=== PATIENT | female | born 1960 | race Caucasian/White ===

== ENCOUNTER 2021-02-16 10:00 | Observation (INO) ==
[2021-02-16] MEDS ORDERED: Melatonin 3 MG TABLET PO PRN (13:19)
[2021-02-16] MEDS ORDERED: Naloxone 0.4 MG/ML INJ IVP PRN (13:19)
[2021-02-16 14:09] LABS: Basophils % 0.5 %; Eosinophils # 0.1 K/mcL (0.0-0.6); Eosinophils % 1.6 %; Hematocrit 36.8 % (35.3-44.9); Hemoglobin 11.5 g/dL (11.5-15.4); Immature Granulocytes % 0.3 % (0-4); Lymphocytes # 1.7 K/mcL (0.6-4.6); Lymphocytes % 22.5 %; Mean Corpuscular HGB Conc 31.3 g/dL (31.6-35.5); Mean Corpuscular Volume 89.8 fL (83.0-100.0); Mean Platelet Volume 9.8 fL (9.4-12.4); Monocytes # 0.4 K/mcL (0.0-1.3); Neutrophils # 5.3 K/mcL (1.6-8.9); Platelet Count 263 K/mcL (140-400); Red Cell Distribution Width 14.4 % (11.5-14.5); Segmented Neutrophils % 70.1 %; White Blood Count 7.5 K/mcL (4.3-11.1)
[2021-02-16 14:18] LABS: INR 2.3; Prothrombin Time 26.4 Seconds (9.4-12.1)
[2021-02-16 14:38] LABS: Calcium 9.8 mg/dL (8.6-10.3); Magnesium 1.6 mg/dL (1.6-2.6); Potassium 3.8 mEq/L (3.5-5.1)
[2021-02-16] MEDS: DilTIAZem CD (24hr) 240 MG CAP.ER.24H PO SCH (17:09)
[2021-02-17 05:28] LABS: INR 2.2; Prothrombin Time 25.2 Seconds (9.4-12.1)
[2021-02-17] MEDS: DilTIAZem CD (24hr) 240 MG CAP.ER.24H PO SCH (08:28)
[2021-02-17] MEDS: Warfarin perPT PO SCH (10:49)
[2021-02-17] MEDS: Patient Taking Own Medication 1 EACH PO SCH ×2 (10:50→10:51)
[2021-02-17] MEDS: Cholecalciferol (D-3) 1,000 UNIT (25MCG) TABLET PO SCH (10:57)
[2021-02-17] MEDS: lisinopriL 10 MG TABLET PO SCH (10:57)
[2021-02-17] MEDS: Magnesium Oxide 400 MG TABLET PO SCH ×2 (10:57→20:46)
[2021-02-17] MEDS: Multivit/Ca/Min/Fe/FA 1 TAB TABLET PO SCH (10:57)
[2021-02-17] MEDS ORDERED: *HR* Warfarin 5 MG TABLET PO ONE (13:05)
[2021-02-18 06:18] LABS: INR 1.9; Prothrombin Time 21.2 Seconds (9.4-12.1)
[2021-02-18 06:37] LABS: Calcium 10.4 mg/dL (8.6-10.3); Potassium 3.8 mEq/L (3.5-5.1)
[2021-02-18] MEDS: Cholecalciferol (D-3) 1,000 UNIT (25MCG) TABLET PO SCH (08:21)
[2021-02-18] MEDS: Multivit/Ca/Min/Fe/FA 1 TAB TABLET PO SCH (08:21)
[2021-02-18] MEDS: lisinopriL 10 MG TABLET PO SCH (08:21)
[2021-02-18] MEDS: Magnesium Oxide 400 MG TABLET PO SCH ×2 (08:21→21:12)
[2021-02-18] MEDS: DilTIAZem CD (24hr) 240 MG CAP.ER.24H PO SCH (08:21)
[2021-02-18] MEDS ORDERED: *HR* Heparin 5,000 UNIT/ML VIAL IVP ONE (08:44)
[2021-02-18] MEDS ORDERED: *HR* Heparin 5,000 UNIT/ML VIAL IVP PRN ×2 (08:44)
[2021-02-18] MEDS ORDERED: *HR* Warfarin 3 MG TABLET PO ONE (09:00)
[2021-02-18] MEDS: Heparin 25,000UNIT/250ML 1/2NS 25,000 UNIT/250 ML IV.SOLN IVC SCH (10:14)
[2021-02-18] MEDS: Patient Taking Own Medication 1 EACH PO SCH ×2 (10:25)
[2021-02-18] MEDS: Warfarin perPT PO SCH (10:25)
[2021-02-18 12:05] LABS: Hematocrit 39.8 % (35.3-44.9); Hemoglobin 12.5 g/dL (11.5-15.4); Mean Corpuscular HGB Conc 31.4 g/dL (31.6-35.5); Mean Corpuscular Hemoglobin 27.9 pg (28.0-33.3); Mean Corpuscular Volume 88.8 fL (83.0-100.0); Platelet Count 321 K/mcL (140-400); Red Blood Count 4.48 M/mcL (3.82-4.97); Red Cell Distribution Width 14.1 % (11.5-14.5); White Blood Count 8.5 K/mcL (4.3-11.1)
[2021-02-18 12:14] LABS: Heparin anti-factor XA UFH 1.03 IU/mL (0.30-0.70); INR 4.4; Prothrombin Time 48.4 Seconds (9.4-12.1)
[2021-02-18 14:04] LABS: Prothrombin Time 24.4 Seconds (9.4-12.1)
[2021-02-18 14:05] LABS: INR 2.2
[2021-02-18 14:09] LABS: Heparin anti-factor XA UFH 1.55 IU/mL (0.30-0.70)
[2021-02-19 05:21] LABS: Prothrombin Time 22.2 Seconds (9.4-12.1)
[2021-02-19] MEDS: lisinopriL 10 MG TABLET PO SCH (08:22)
[2021-02-19] MEDS: Heparin 25,000UNIT/250ML 1/2NS 25,000 UNIT/250 ML IV.SOLN IVC SCH ×2 (08:22→15:37)
[2021-02-19] MEDS: Magnesium Oxide 400 MG TABLET PO SCH (08:22)
[2021-02-19] MEDS: Cholecalciferol (D-3) 1,000 UNIT (25MCG) TABLET PO SCH (08:22)
[2021-02-19] MEDS: DilTIAZem CD (24hr) 240 MG CAP.ER.24H PO SCH (08:22)
[2021-02-19] MEDS: Patient Taking Own Medication 1 EACH PO SCH ×2 (08:24)
[2021-02-19] MEDS ORDERED: *HR* Warfarin 3 MG TABLET PO ONE (09:00)
[2021-02-19] MEDS: Warfarin perPT PO SCH (09:27)
[2021-02-19] MEDS ORDERED: Lidocaine Viscous Oral Soln 15 ML SOLUTION MM PRN (13:27)
[2021-02-19] MEDS ORDERED: 0.9 % Sodium Chloride 500 ML IVC ONE (13:27)
[2021-02-19] MEDS: *HR* Midazolam HCl 5 MG/5 ML VIAL IVP PRN ×5 (14:05→14:38)
[2021-02-19] MEDS: *HR* FentaNYL (PF) 100 MCG/2 ML VIAL IVP PRN ×4 (14:05→14:38)
[2021-02-19 15:39] VITALS: BP 117/78
[2021-02-19] MEDS: Multivit/Ca/Min/Fe/FA 1 TAB TABLET PO SCH (16:29)
[2021-02-20] MEDS ORDERED: *HR* Warfarin 5 MG TABLET PO SCH (18:00)
[2021-02-20] MEDS ORDERED: *HR* Warfarin 1 MG TABLET PO SCH (18:00)
== END 2021-02-19 17:51 | disposition home or self-care (01) ==
LOC: CDU → 3BNU 16:56
PROVIDERS: ADMIT Internal Medicine Clinical Cardiac Electrophysiology; ATTEND Internal Medicine Clinical Cardiac Electrophysiology

== ENCOUNTER 2021-10-27 09:52 | Observation (INO) ==
[2021-10-27] MEDS ORDERED: Melatonin 3 MG TABLET PO PRN (10:07)
[2021-10-27] MEDS ORDERED: Naloxone 0.4 MG/ML INJ IVP PRN (10:07)
[2021-10-27 10:50] LABS: Basophils # 0.1 K/mcL (0.0-0.2); Basophils % 0.6 %; Eosinophils # 0.2 K/mcL (0.0-0.6); Eosinophils % 2.2 %; Hematocrit 38.2 % (35.3-44.9); Hemoglobin 11.9 g/dL (11.5-15.4); Immature Granulocytes % 0.6 % (0-4); Lymphocytes # 1.9 K/mcL (0.6-4.6); Lymphocytes % 19.2 %; Mean Corpuscular HGB Conc 31.2 g/dL (31.6-35.5); Mean Corpuscular Volume 89.9 fL (83.0-100.0); Mean Platelet Volume 9.5 fL (9.4-12.4); Monocytes # 0.5 K/mcL (0.0-1.3); Monocytes % 4.9 %; Platelet Count 308 K/mcL (140-400); Red Blood Count 4.25 M/mcL (3.82-4.97); Red Cell Distribution Width 15.7 % (11.5-14.5); Segmented Neutrophils % 72.5 %; White Blood Count 9.7 K/mcL (4.3-11.1)
[2021-10-27 11:11] LABS: Calcium 9.4 mg/dL (8.6-10.3); Magnesium 1.7 mg/dL (1.6-2.6); Potassium 4.3 mEq/L (3.5-5.1)
[2021-10-27 11:35] LABS: INR 2.5; Prothrombin Time 27.6 Seconds (9.4-12.1)
[2021-10-27] MEDS: *HR* Warfarin 5 MG TABLET PO SCH (17:49)
[2021-10-27] MEDS ORDERED: *HR* Warfarin 1 MG TABLET PO SCH (18:00)
[2021-10-27] MEDS ORDERED: POTASSIUM GLUCONATE 600 MG PO SCH (21:00)
[2021-10-27] MEDS: Magnesium Oxide 400 MG TABLET PO SCH (22:18)
[2021-10-27] MEDS: Multivit/Ca/Min/Fe/FA 1 TAB TABLET PO SCH (22:18)
[2021-10-27] MEDS: Cholecalciferol (D-3) 1,000 UNIT (25MCG) TABLET PO SCH (22:20)
[2021-10-28] MEDS: lisinopriL 10 MG TABLET PO SCH (07:53)
[2021-10-28] MEDS: Magnesium Oxide 400 MG TABLET PO SCH ×2 (07:53→20:29)
[2021-10-28] MEDS: DilTIAZem CD (24hr) 180 MG CAP.ER.24H PO SCH (07:54)
[2021-10-28] MEDS: Cholecalciferol (D-3) 1,000 UNIT (25MCG) TABLET PO SCH (17:43)
[2021-10-28] MEDS: *HR* Warfarin 5 MG TABLET PO SCH (17:43)
[2021-10-28] MEDS: Multivit/Ca/Min/Fe/FA 1 TAB TABLET PO SCH (17:44)
[2021-10-29 06:58] VITALS: O2SAT 94
[2021-10-29] MEDS: DilTIAZem CD (24hr) 180 MG CAP.ER.24H PO SCH (08:02)
[2021-10-29] MEDS: lisinopriL 10 MG TABLET PO SCH (08:02)
[2021-10-29] MEDS: Magnesium Oxide 400 MG TABLET PO SCH (08:02)
[2021-10-29 11:35] VITALS: TEMP 97.8
[2021-10-29] MEDS ORDERED: *HR* FentaNYL (PF) 250 MCG/5 ML VIAL ONE (13:06)
[2021-10-29] MEDS ORDERED: *HR* Midazolam HCl 5 MG/5 ML VIAL IVP ONE (13:06)
[2021-10-29] MEDS ORDERED: 0.9 % Sodium Chloride 1,000 ML ONE (13:07)
[2021-10-29] MEDS: Cholecalciferol (D-3) 1,000 UNIT (25MCG) TABLET PO SCH (16:56)
[2021-10-29] MEDS: *HR* Warfarin 5 MG TABLET PO SCH (16:56)
[2021-10-29] MEDS: Multivit/Ca/Min/Fe/FA 1 TAB TABLET PO SCH (16:57)
[2021-10-29 18:09] VITALS: BP 114/72; PULSE 65
== END 2021-10-29 18:26 | disposition home or self-care (01) ==
LOC: 3BNU → OBSVTOIN 09:52 → INTOOBSV 09:52
PROVIDERS: ADMIT Internal Medicine Clinical Cardiac Electrophysiology; ATTEND Internal Medicine Clinical Cardiac Electrophysiology

== ENCOUNTER 2021-11-25 15:24 | Observation (INO) ==
[2021-11-30] MEDS ORDERED: Naloxone 0.4 MG/ML INJ IVP PRN (10:32)
[2021-11-30 13:27] LABS: Hematocrit 37.4 % (35.3-44.9); Hemoglobin 12.3 g/dL (11.5-15.4); Mean Corpuscular HGB Conc 32.9 g/dL (31.6-35.5); Mean Corpuscular Hemoglobin 28.9 pg (28.0-33.3); Mean Platelet Volume 9.7 fL (9.4-12.4); Platelet Count 318 K/mcL (140-400); Red Blood Count 4.25 M/mcL (3.82-4.97); Red Cell Distribution Width 15.6 % (11.5-14.5); White Blood Count 11.3 K/mcL (4.3-11.1)
[2021-11-30 13:35] LABS: INR 2.7; Prothrombin Time 30.1 Seconds (9.4-12.1)
[2021-11-30 13:44] LABS: Calcium 9.4 mg/dL (8.6-10.3); Magnesium 1.8 mg/dL (1.6-2.6); Potassium 4.2 mEq/L (3.5-5.1)
[2021-11-30] MEDS: Multivit/Ca/Min/Fe/FA 1 TAB TABLET PO SCH (17:50)
[2021-11-30] MEDS ORDERED: POTASSIUM GLUCONATE 600 MG PO SCH (18:00)
[2021-11-30] MEDS ORDERED: *HR* Warfarin 5 MG TABLET PO SCH (18:00)
[2021-11-30] MEDS ORDERED: *HR* Warfarin 1 MG TABLET PO SCH (18:00)
[2021-11-30] MEDS: Magnesium Oxide 400 MG TABLET PO SCH (21:09)
[2021-12-01] MEDS: DilTIAZem CD (24hr) 180 MG CAP.ER.24H PO SCH (08:09)
[2021-12-01] MEDS: Magnesium Oxide 400 MG TABLET PO SCH ×2 (08:09→21:39)
[2021-12-01] MEDS: lisinopriL 10 MG TABLET PO SCH (08:10)
[2021-12-01] MEDS ORDERED: ZINC 50 MG PO SCH (09:00)
[2021-12-01] MEDS: Zinc Sulfate 220 MG CAPSULE PO SCH (10:59)
[2021-12-01] MEDS: Multivit/Ca/Min/Fe/FA 1 TAB TABLET PO SCH (17:51)
[2021-12-01] MEDS: *HR* Warfarin 3 MG TABLET PO SCH (17:51)
[2021-12-02 04:41] LABS: INR 2.1; Prothrombin Time 23.8 Seconds (9.4-12.1)
[2021-12-02 04:55] LABS: Calcium 9.4 mg/dL (8.6-10.3); Potassium 4.2 mEq/L (3.5-5.1)
[2021-12-02] MEDS: DilTIAZem CD (24hr) 180 MG CAP.ER.24H PO SCH (08:24)
[2021-12-02] MEDS: Magnesium Oxide 400 MG TABLET PO SCH ×2 (08:24→20:35)
[2021-12-02] MEDS: Zinc Sulfate 220 MG CAPSULE PO SCH (08:24)
[2021-12-02] MEDS: lisinopriL 10 MG TABLET PO SCH (08:24)
[2021-12-02 11:02] VITALS: TEMP 98.1
[2021-12-02] MEDS ORDERED: Lidocaine Viscous Oral Soln 15 ML SOLUTION MM PRN (13:37)
[2021-12-02] MEDS ORDERED: 0.9 % Sodium Chloride 500 ML IVC SCH (13:45)
[2021-12-02] MEDS: *HR* Midazolam HCl 5 MG/5 ML VIAL IVP PRN ×4 (14:31→14:52)
[2021-12-02] MEDS: *HR* FentaNYL (PF) 100 MCG/2 ML VIAL IVP PRN ×3 (14:32→14:45)
[2021-12-02 16:23] VITALS: O2SAT 96
[2021-12-02] MEDS: Multivit/Ca/Min/Fe/FA 1 TAB TABLET PO SCH (17:53)
[2021-12-02] MEDS: *HR* Warfarin 3 MG TABLET PO SCH (17:54)
[2021-12-02 18:08] VITALS: BP 102/65; PULSE 59
== END 2021-12-02 20:49 | disposition home or self-care (01) ==
LOC: 3BNU
PROVIDERS: ADMIT Internal Medicine Clinical Cardiac Electrophysiology; ATTEND Internal Medicine Clinical Cardiac Electrophysiology